=== PATIENT | female | born 1990 | race American Indian/Alaskan Native ===

== ENCOUNTER 2017-11-12 07:45 | Outpatient (CLI) | payer MEDICAID ==
[2017-11-12 08:12] VITALS: BP 111/54
[2017-11-12 09:00] LABS: Bacteria,Urine 1+ /HPF (Negative); Bilirubin,Urine NEG (Negative); Blood,Urine NEG (Negative); Color,Urine Yellow (Yellow); Mucus,Urine FEW /HPF; Nitrite,Urine NEG (Negative); Protein,Urine <15 mg/dL mg/dL (Negative)
== END 2017-11-12 09:27 | disposition home or self-care (01) ==
LOC: TRG 07:45 → LD 07:47 → TRG 09:27
PROVIDERS: ATTEND Obstetrics & Gynecology
DX: O47.02 False labor before 37 completed weeks of gestation, second trimester (principal); Z3A.20 20 weeks gestation of pregnancy
CPT/HCPCS: 81001

== ENCOUNTER 2017-12-08 21:16 | Emergency (ER) | payer OTHER, MEDICAID ==
[2017-12-08] MEDS ORDERED: LACTATED RINGERS 500 ML IV ONE (23:38)
[2017-12-09] MEDS ORDERED: TYLENOL ONE (02:25)
[2017-12-09] MEDS ORDERED: TYLENOL PO ONE (02:26)
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
[2017-12-09 03:09] VITALS: BP 101/51
== END 2017-12-09 03:09 | disposition home or self-care (01) ==
LOC: ED 21:16 → TRG 21:16 → EDSTATUS 23:27 → TRG 12-09 01:36
DX: O9A.212 Injury, poisoning and certain other consequences of external causes complicating pregnancy, second trimester (principal); R51 Headache; M25.551 Pain in right hip; Z3A.23 23 weeks gestation of pregnancy; V87.7XXA Person injured in collision between other specified motor vehicles (traffic), initial encounter; Y93.89 Activity, other specified; Y99.8 Other external cause status; Y92.410 Unspecified street and highway as the place of occurrence of the external cause
CPT/HCPCS: 59025; 99282; J7120